=== PATIENT | female | born 1960 | race Caucasian/White ===

== ENCOUNTER → 2016-10-19 | Outpatient (CLI) | payer BC ==
[~2016-10-19] MED LIST: CALCTAB5 PO; CYAN500T13 PO; GLC500 PO; HYDR-3983 PO; INSDGIPEN SC; INSU1INJ23 SC; LBT/300 PO; LEVO200T PO; LEVO25TA PO; LEVO75TA PO; LOSA100T65 PO; NRN/300 PO; NVLGI/PEN SC; SERT1TAB68 PO; SIMV40TA2 PO
[2016-10-19 11:17] LABS: CALCIUM 9.5 mg/dl (8.5-10.1)
[2016-10-19 11:26] LABS: ESTIMATED AVERAGE GLUCOSE 203 mg/dl; HA1C FLAG Normal (Normal)
[2016-10-19 11:35] LABS: THYROID STIMULATING HORMONE 0.199 uIu/ml (0.300-4.500)
== END | disposition home or self-care (01) ==
LOC: C.LAB1850 10:18
PROVIDERS: ATTEND Nurse Practitioner Adult Health
DX: E03.9 Hypothyroidism, unspecified (principal); E55.9 Vitamin D deficiency, unspecified; E11.9 Type 2 diabetes mellitus without complications; M85.80 Other specified disorders of bone density and structure, unspecified site; Z86.39 Personal history of other endocrine, nutritional and metabolic disease

== ENCOUNTER → 2017-01-31 | Outpatient (CLI) | payer BC ==
[~2017-01-31] MED LIST changes: -LEVO75TA PO
[2017-01-31 17:52] LABS: URINE APPEARANCE TURBID (CLEAR); URINE BILIRUBIN NEG (NEG); URINE COLOR DK YELLOW; URINE NITRITE NEG (NEG); URINE PH 5.5 (4.5-7.5); URINE SPECIFIC GRAVITY 1.024 (1.000-1.030); UROBILINOGEN NEG (NEG); ZZUR CULT IF INDIC CLEAN CATCH NO
[2017-01-31 17:55] LABS: MANUAL MICROSCOPIC REQUIRED? NO; REVIEW REQ? NO
[2017-01-31 18:08] LABS: BLOOD UREA NITROGEN 23 mg/dl (7-18); BUN/CREATININE RATIO 20.9 (10-20); CALCIUM 9.2 mg/dl (8.5-10.1); CARBON DIOXIDE 28 mmol/L (21-32); CHLORIDE 104 mmol/L (98-107); GLUCOSE 102 mg/dl (70-99); MAGNESIUM 2.2 mg/dl (1.8-2.4); PHOSPHORUS 3.2 mg/dl (2.5-4.9); SODIUM 138 mmol/L (136-145)
[2017-01-31 18:09] LABS: URINE TOTAL PROTEIN 5.6 mg/dl (0-11.9)
[2017-02-01 06:21] LABS: ESTIMATED AVERAGE GLUCOSE 174 mg/dl; HA1C FLAG Normal (Normal)
== END | disposition home or self-care (01) ==
LOC: C.LABPVFM 11:20
PROVIDERS: ATTEND Internal Medicine Endocrinology, Diabetes & Metabolism
DX: E03.9 Hypothyroidism, unspecified (principal); E11.9 Type 2 diabetes mellitus without complications; Z79.4 Long term (current) use of insulin; E55.9 Vitamin D deficiency, unspecified; Z86.39 Personal history of other endocrine, nutritional and metabolic disease; I10 Essential (primary) hypertension

== ENCOUNTER → 2017-05-23 | Outpatient (CLI) | payer OTHER, BC ==
[~2017-05-23] MED LIST changes: -HYDR-3983 PO
[2017-05-23 12:38] LABS: ESTIMATED AVERAGE GLUCOSE 200 mg/dl; HA1C FLAG Normal (Normal)
[2017-05-23 13:28] LABS: ALT/SGPT 32 U/L (12-78); BLOOD UREA NITROGEN 24 mg/dl (7-18); BUN/CREATININE RATIO 25.1 (10-20); CARBON DIOXIDE 26 mmol/L (21-32); CHLORIDE 105 mmol/L (98-107); CREATININE 0.96 mg/dl (0.60-1.20); GLUCOSE 92 mg/dl (70-99); POTASSIUM 3.8 mmol/L (3.5-5.1); SODIUM 139 mmol/L (136-145); TRIGLYCERIDES 114 mg/dl (0-150); VERY LOW DENSITY LIPOPROT CALC 23 mg/dl
[2017-05-23 13:30] LABS: ALB/GLOB RATIO 0.9 (0.9-2); ALKALINE PHOSPHATASE 82 U/L (45-117); AST/SGOT 20 U/L (15-37); CHOLESTEROL 174 mg/dl (0-200); CHOLESTEROL/HDL RATIO 2.9; HDL CHOLESTEROL 59 mg/dl; LDL CHOLESTEROL CALCULATED 92 mg/dl
== END | disposition home or self-care (01) ==
LOC: C.LAB1850 09:41
PROVIDERS: ATTEND Internal Medicine Endocrinology, Diabetes & Metabolism
DX: E55.9 Vitamin D deficiency, unspecified (principal); Z86.39 Personal history of other endocrine, nutritional and metabolic disease; E11.9 Type 2 diabetes mellitus without complications

== ENCOUNTER 2017-08-10 18:25 | Emergency (ER) | payer OTHER, BC ==
[~2017-08-10] VITALS: Ht 167.6 cm; Wt 102.0 kg
[2017-08-10 18:37] VITALS: TEMP 36.9; Ht 167.6 cm; Wt 102.0 kg
--- NOTE | 2017-08-10 19:10 | EMERGENCY ROOM VISIT NOTE ---
ED Visit Note First contact with patient: 18:47 CHIEF COMPLAINT: Knee and calf pain HISTORY OF PRESENT ILLNESS: This is a 57-year-old female who presents to the emergency department with complaint of gradual onset of posterior knee and calf pain that started approximately 5 days ago. There has been no injury to the leg , however the patient does note that today she was taking a step and felt a sharp pain behind her knee that radiates down to her calf that is worse than previously. She denies any fever, chills, chest pain, shortness of breath, dizziness or syncope, abdominal pain, nausea or vomiting, urinary symptoms, rash. There has not been a long period of immobilization or long car or plane ride recently. There is no history of blood clots in the veins of the legs. She has a history of chronic back pain and is on Dilaudid pump chronically for this. REVIEW OF SYSTEMS: A complete 10 point review of systems was reviewed with the patient with pertinent positives and negatives as per history of present illness. All else were negative. PMH: The patient is healthy; there is no significant medical or surgical history. SOCIAL HISTORY: Patient lives at home. PHYSICAL EXAM: Vital Signs: Reviewed Nurse's notes. CONSTITUTIONAL: Pleasant and cooperative. No acute distress. Obese. Well appearing and well nourished. HEENT: Normocephalic, atraumatic. Pupils equal, round and reactive to light, EOMI. TMs normal. Pharynx normal. NECK: Supple, full active range of motion without discomfort. RESPIRATORY: Clear to auscultation bilaterally with no wheezing, crackles, rhonchi or stridor. Equal expansion bilaterally. CARDIOVASCULAR: Regular rate and rhythm with no murmurs, rubs or gallops. Normal peripheral perfusion. No edema. GASTROINTESTINAL: Soft, nontender, nondistended. No palpable masses or HSM. Bowel sounds present in all quadrants. MUSCULOSKELETAL: There is mild tenderness and swelling to the left posterior knee and calf, most significant tenderness directly behind the knee. There is no erythema, not hot to touch, no cords can be palpated. There is no lymphangitic streaking. She does have a positive Homans sign on the left. No cyanosis, edema, joint tenderness or effusion. Pulses equal bilaterally. Full range of motion of the knee joint, with increased pain upon flexion. No knee joint effusion noted. INTEGUMENTARY: No rash or other significant dermatologic conditions noted. NEUROLOGIC: Alert and oriented X 4 with normal affect. Cranial nerves II-XII grossly intact. No focal neurologic deficits noted. IMAGING: L KNEE 1 OR 2 VIEWS ROUTINE CLINICAL HISTORY: 57 years-old Female presenting with pain behind knee. TECHNIQUE: Frontal and lateral views of the left knee were obtained. COMPARISON: 06/11/2014. FINDINGS: No acute fracture or malalignment. Minimal osteophytosis may be present at the patellofemoral and lateral compartments. The joint space is symmetric. Focal stippled sclerotic lesion in the distal metaphysis of the femur, possibly bone island versus chondroid lesion. This has not changed since 2013. A similar more subtle smaller focus may be present in the proximal tibial metaphysis. Trace knee joint effusion. Prominent enthesophytes at the insertion of the quadriceps tendon and origin of the patellar tendon. IMPRESSION: 1. No acute osseous injury. 2. Mild degenerative changes in the lateral and patellofemoral compartments. 3. Trace knee joint effusion. ----- L VENOUS DOPP LOWER EXT UNILAT CLINICAL HISTORY: 57 years-old Female presenting with pain behind knee/calf, eval DVT. TECHNIQUE: Real-time grayscale and color and spectral Doppler ultrasound imaging of the veins of the left lower extremity was performed. Compression and augmentation were also utilized. COMPARISON: 03/17/2011. FINDINGS: Left: Common femoral vein: Patent. Greater saphenous vein: Patent. Deep femoral vein: Patent. Femoral vein: Patent. Popliteal vein: Patent. Calf veins: Patent. Other: Left popliteal cyst noted. IMPRESSION: No evidence of deep venous thrombosis. EMERGENCY DEPARTMENT COURSE: I examined the patient. Differential diagnosis includes knee sprain, contusion, gastrocnemius muscle tear, tendinitis, ligamentous injury, cellulitis, DVT, among others. The patient was given Percocet for pain. X-ray of the tibia/fibula is unremarkable, negative for acute bony abnormality. Ultrasound exam of the leg does not show any evidence of deep venous thrombosis, but is notable for a Courtney's cyst. This is suspected to be a cause for patient's pain. Patient was reassessed, reports improved pain after Percocet. She was updated on all results and plan for discharge home, and was encouraged to follow closely with her PCP. An Teddy wrap was applied to her left knee for comfort. She has a walker at home that she was encouraged to use to help reduce weightbearing on the left leg and help rest the leg for improved pain. She was also given strict return precautions should her symptoms worsen, she verbalized understanding. Patient was discharged home in stable condition and improved. Medication Reconciliation: I attest that I have personally reviewed the patient' s current medication list. Blood pressure screening: The patient was found to have an elevated blood pressure, this was felt to be situational. Current/Historical Medications Scheduled Calcium Carbonate-Vitamin D (Calcium), 1 TAB PO BID Cyanocobalamin (Vitamin B12 500MCG), 500 MCG PO QAM Gabapentin (Gabapentin), 600 MG PO TID Insulin Aspart (Novolog Flexpen), 20 UNITS SC TIDM Insulin Glargine (Lantus Solostar), 40 UNITS SC HS Insulin Isophane (Human) (Humulin N Kwikpen), 40 UNITS SC HS Labetalol HCl (Labetalol HCl), 600 MG PO BID Levothyroxine Sodium (Synthroid), 200 MCG PO DAILY Levothyroxine Sodium (Synthroid), 1 TAB PO DAILY Liothyronine Sodium (Liothyronine Sodium), 12.5 MCG PO DAILY Losartan Potassium (Cozaar), 100 MG PO QAM Metformin HCl (Metformin HCl), 1,000 MG PO BID Sertraline Hcl (Zoloft), 100 MG PO QAM Simvastatin (Zocor), 40 MG PO HS [Pain Pump], INTRAD CONTINOUS Allergies Coded Allergies: Amoxicillin (Verified Allergy, Intermediate, rash, 12/28/16) Clavulanic Acid (Verified Allergy, Intermediate, rash, 12/28/16) Prednisone (Verified Adverse Reaction, Unknown, pruritis, 12/28/16) pt currently taking. states was told to continue. Vital Signs Date Time Temp Pulse Resp B/P (MAP) Pulse Ox O2 Delivery O2 Flow Rate FiO2 08/10/17 21:11 97 16 129/81 97 08/10/17 20:02 89 16 139/75 94 Room Air 08/10/17 18:37 36.9 93 16 148/82 96 Room Air Medications Administered Medications (Trade) Dose Ordered Sig/Sara Route Start Time Stop Time Status Last Admin Dose Admin Oxycodone/ Acetaminophen (Percocet 5-325mg Tab) 1 tab NOW ONCE PO 08/10/17 19:30 08/10/17 19:31 DC 08/10/17 19:29 1 TAB Departure Information Impression Primary Impression: Synovial cyst of popliteal space [Courtney], left knee Dispostion Home / Self-Care Condition GOOD Referrals Amanda Spivey MD (PCP) Patient Instructions ED C[facility], [facility] Additional Instructions Stay off of the leg as much as possible and keep your knee elevated to rest and reduce swelling. Use your walker to limit weight put on your left leg. Apply heat to the back of your knee frequently over the next 2 days. Wear the TEDDY wrap to your left knee for comfort. Ibuprofen 600 mg every 6-8 hours and/or Tylenol 1000mg every 8 hours as needed for pain. Follow up with your primary care provider in the next week if your symptoms do not improve. Please return to the ER if you develop severe worsening pain, redness or increased swelling of the knee or leg, if the area becomes hot to tough, streaking up the leg, fevers/chills, new numbness/tingling or weakness of the leg, or any other concerns. Work Instructions Return To Work: 2 days
[2017-08-10] MEDS ORDERED: NRN600 PO (19:13)
[2017-08-10] MEDS ORDERED: CALC-51 PO (19:13)
[2017-08-10] MEDS ORDERED: PAIN PUMP INTRAD (19:13)
[2017-08-10] MEDS ORDERED: CYTM25 PO (19:13)
[2017-08-10] MEDS ORDERED: GLC500 PO (19:13)
[2017-08-10] MEDS ORDERED: LBT300 PO (19:13)
[2017-08-10] MEDS ORDERED: OXYCODONE/ACETAMINOPHEN 5-325 TAB PO ONE (19:30)
--- NOTE | 2017-08-10 19:46 | DIAGNOSTIC IMAGING REPORT ---
L KNEE 1 OR 2 VIEWS ROUTINE CLINICAL HISTORY: 57 years-old Female presenting with pain behind knee. TECHNIQUE: Frontal and lateral views of the left knee were obtained. COMPARISON: 06/11/2014. FINDINGS: No acute fracture or malalignment. Minimal osteophytosis may be present at the patellofemoral and lateral compartments. The joint space is symmetric. Focal stippled sclerotic lesion in the distal metaphysis of the femur, possibly bone island versus chondroid lesion. This has not changed since 2013. A similar more subtle smaller focus may be present in the proximal tibial metaphysis. Trace knee joint effusion. Prominent enthesophytes at the insertion of the quadriceps tendon and origin of the patellar tendon. IMPRESSION: 1. No acute osseous injury. 2. Mild degenerative changes in the lateral and patellofemoral compartments. 3. Trace knee joint effusion. Electronically signed by: Ramses Moreno M.D. 08/10/2017 7:45 PM Dictated Date/Time: 08/10/2017 7:42 PM
--- NOTE | 2017-08-10 20:03 | DIAGNOSTIC IMAGING REPORT ---
L VENOUS DOPP LOWER EXT UNILAT CLINICAL HISTORY: 57 years-old Female presenting with pain behind knee/calf, eval DVT. TECHNIQUE: Real-time grayscale and color and spectral Doppler ultrasound imaging of the veins of the left lower extremity was performed. Compression and augmentation were also utilized. COMPARISON: 03/17/2011. FINDINGS: Left: Common femoral vein: Patent. Greater saphenous vein: Patent. Deep femoral vein: Patent. Femoral vein: Patent. Popliteal vein: Patent. Calf veins: Patent. Other: Left popliteal cyst noted. IMPRESSION: No evidence of deep venous thrombosis. Electronically signed by: Ramses Moreno M.D. 08/10/2017 8:01 PM Dictated Date/Time: 08/10/2017 8:00 PM
[2017-08-10 21:11] VITALS: BP 129/81; PULSE 97; O2SAT 97
[2017-10-10] MEDS ORDERED: OXYC-57 PO (13:14)
== END 2017-08-10 21:00 | disposition home or self-care (01) ==
LOC: C.EDB 18:26 → C.EDD 21:00
DX: M71.22 Synovial cyst of popliteal space [Baker], left knee (principal); Z79.4 Long term (current) use of insulin

== ENCOUNTER → 2017-08-25 | Outpatient (CLI) | payer OTHER, BC ==
[~2017-08-25] MED LIST changes: +CALC-51 PO; -CALCTAB5 PO; +CYTM25 PO; -LBT/300 PO; +LBT300 PO; -NRN/300 PO; +NRN600 PO; +PAIN PUMP INTRAD
== END | disposition home or self-care (01) ==
LOC: C.CPL 14:12
PROVIDERS: ATTEND Orthopaedic Surgery
DX: S83.242D Other tear of medial meniscus, current injury, left knee, subsequent encounter (principal); X58.XXXD Exposure to other specified factors, subsequent encounter; Z01.810 Encounter for preprocedural cardiovascular examination

== ENCOUNTER 2019-06-27 13:37 | Inpatient (IN) ==
[2019-06-27 14:30] LABS: Basophils # (auto) 0.02 K/uL (0-0.2); Basophils % (auto) 0.2 %; Eosinophils # (auto) 0.27 K/uL (0-0.5); Eosinophils % (auto) 2.6 %; Immature Granulocytes # (auto) 0.01 K/uL (0.00-0.02); Immature Granulocytes % (auto) 0.1 %; Lymphocytes # (auto) 3.29 K/uL (1.2-3.4); Lymphocytes % (auto) 31.3 %; Mean Corpuscular Hemoglobin 26.5 pg (25-34); Mean Corpuscular Hgb Conc 32.4 g/dL (32-36); Mean Corpuscular Volume 81.9 fL (80-100); Mean Platelet Volume 9.4 fL (7.4-10.4); Monocytes # (auto) 0.78 K/uL (0.11-0.59); Monocytes % (auto) 7.4 %; Neutrophils # (auto) 6.13 K/uL (1.4-6.5); Neutrophils % (auto) 58.4 %; Platelet Count 204 K/uL (130-400); RDW Standard Deviation 42.1 fL (36.4-46.3); Red Blood Count 4.15 M/uL (4.2-5.4)
--- NOTE | 2019-06-27 14:37 | XRay Report ---
XR chest 1V portable CLINICAL HISTORY: 58 years-old Female presenting with post op low o2 sat eval for pna. TECHNIQUE: Portable upright AP view of the chest was obtained. COMPARISON: 05/11/2019. FINDINGS: Atherosclerosis of the aortic arch. Cardiac silhouette normal in size. Elevation of the right hemidia phragm new from prior. Mild pulmonary vascular prominence. Right basilar opacity associated with the diaphragmatic elevation. No other focal opacity. No large effusion or pneumothorax. Degenerative nick ges of the thoracic spine. Cholecystectomy clips noted. IMPRESSION: 1. Elevation of the right hemidiaphragm with right basilar atelectasis new from prior. This is of in determinate etiology and raises concern for phrenic nerve injury/right hemidiaphragm paralysis. Electronically signed by: Ramses Moreno M.D. 06/27/2019 2:35 PM
[2019-06-27 14:40] LABS: INR 1.1 (0.9-1.1); Partial Thromboplastin Ratio 1.2; Partial Thromboplastin Time 31.8 Seconds (21.0-31.0); Prothrombin Time 11.6 Seconds (9.0-12.0)
[2019-06-27 14:44] LABS: Alanine Aminotransferase 33 U/L (12-78); Albumin Level 3.5 gm/dl (3.4-5.0); Aspartate Aminotransferase 31 U/L (15-37); BUN Creatinine Ratio 26.7 (10-20); Blood Urea Nitrogen 21 mg/dl (7-18); Calcium 8.3 mg/dl (8.5-10.1); Carbon Dioxide 26 mmol/L (21-32); Chloride 106 mmol/L (98-107); Creatinine Clr Calc Pharmacy 88.3 ml/min; Est GFR (African American) 93.5; Est GFR (Non-African American) 80.7; Glucose 77 mg/dl (70-99); Sodium 140 mmol/L (136-145)
[2019-06-27 14:49] LABS: Alkaline Phosphatase 89 U/L (45-117); Bilirubin,Total 1.2 mg/dl (0.2-1); Globulin 3.6 gm/dl (2.5-4.0); Total Protein 7.1 gm/dl (6.4-8.2); Troponin I < 0.015 ng/ml (0-0.045)
[2019-06-27] MEDS ORDERED: ONDANSETRON INJ 2 MG/ML 2 ML VIAL IV STA (14:58)
[2019-06-27] MEDS ORDERED: fentaNYL citrate 100 MCG/2 ML VIAL IV STA (14:58)
[2019-06-27] MEDS ORDERED: MAGNESIUM HYDROXIDE SUSP 30 ML UDC PO PRN (15:48)
[2019-06-27] MEDS ORDERED: ALUMINUM/MAGNESIUM SUSP 30 ML UDC PO PRN (15:48)
[2019-06-27] MEDS ORDERED: ACETAMINOPHEN 325 MG TAB PO PRN (15:48)
--- NOTE | 2019-06-27 15:49 | History & Physical Report ---
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 (2) Type 2 diabetes mellitus, with long-term current use of insulin: Patient was on a large dose insulin subcu at home Consult pharmacy for diabetic control, hold metformin (3) Pure hypercholesterolemia: Continue Lipitor 40 mg p.o. daily Follow-up on lipids panel with primary care physician (4) Hypothyroidism: Check TSH in a.m. Continue Synthroid 250 mg p.o. daily (5) Depression: Appears to be stable, continue Effexor X are 150+37.5 mg p.o. daily (6) Essential hypertension: Blood pressure is currently within normal limits Restart hydrochlorothiazide from tomorrow morning History of Present Illness 58-year-old female with past medical history of diabetes mellitus insulin requiring, essential hypertension, dyslipidemia, hypothyroidism and obesity. Patient had a right shoulder and right middle arthroscopy today that went uneventful except for after she woke up from anesthesia she was hypoxic. She has no previous diagnosis of obstructive sleep apnea but her body habitus is suggestive of that. She was kept under observation and was given supplemental oxygen with no improvement. She was sent to the ED for further evaluation and she was found to have an elevated right couple of the diaphragm, anesthesia believes that she might have had right diaphragmatic paralysis from interscaling block. As per anesthesia condition can last few hours to 20 hours if that was the underlying cause of her hypoxia. X-ray also reported some right lower lobe density, possible atelectasis. Patient has no complaint, denies any chest pain, while in oxygen denies any shortness of breath. Denies any diarrhea, blood in stool, blood in the urine Primary Care Provider: Amanda Spivey MD Allergies Allergy/AdvReac Type Severity Reaction Status Date / Time amoxicillin Allergy Intermediate rash Verified 06/11/19 10:12 clavulanic acid Allergy Intermediate rash Verified 06/11/19 10:12 morphine Allergy Intermediate Itchy Unverified 06/27/19 14:06 prednisone AdvReac Unknown pruritis Verified 06/11/19 10:12 Augmentin TABS AdvReac Unknown Unknown Uncoded 06/27/19 14:06 predniSONE TABS AdvReac Unknown Unknown Uncoded 06/27/19 14:06 Home Medications Home Medications Medication Instructions Recorded Confirmed Type semaglutide 0.25 mg or 0.5 mg (2 0.25 mg SQ .COMPLEX #4.5 ml 01/23/19 06/27/19 Rx mg/1.5 mL) subcutaneous pen injector pen needle, diabetic 32 gauge x #500 ea 01/26/19 06/11/19 Rx 5/32" blood sugar diagnostic #10 ea 03/21/19 06/11/19 History cholecalciferol (vitamin D3) 2,000 4,000 units PO QAM tab 03/21/19 06/27/19 History unit tablet lancets 33 gauge #100 ea 03/21/19 06/11/19 History atorvastatin 40 mg tablet 40 mg PO HS 05/28/19 06/27/19 History hydrochlorothiazide 25 mg tablet 25 mg PO QAM 05/28/19 06/27/19 History insulin NPH isoph U-100 human 100 60 units SQ QPM ml 05/28/19 06/27/19 History unit/mL (3 mL) subcutaneous pen insulin aspart U-100 100 unit/mL 25 units SQ QAM ml 05/28/19 06/27/19 History (3 mL) subcutaneous pen insulin glargine 100 unit/mL (3 See Rx Instructions SQ QPM ml 05/28/19 06/27/19 History mL) subcutaneous pen labetalol 300 mg tablet 300 mg PO BID 05/28/19 06/27/19 History levothyroxine 200 mcg capsule 200 mcg PO QAM 05/28/19 06/27/19 History levothyroxine 50 mcg capsule 50 mcg PO QAM 05/28/19 06/27/19 History metformin 1,000 mg tablet 1,000 mg PO BID 05/28/19 06/27/19 History gabapentin 600 mg tablet 600 mg PO TID #90 tab 06/14/19 06/27/19 Rx venlafaxine 37.5 mg PO QAM 06/27/19 06/27/19 History venlafaxine [Effexor XR] 150 mg PO QAM 06/27/19 06/27/19 History Past Med/Surg History Medical History Arachnoiditis (Resolved) Cervicalgia (Chronic) Chronic back pain Degenerative disc disease Depression (Chronic) Depressive disorder (Chronic) Diabetes mellitus, type 2 Dyslipidemia (Chronic) Esophageal reflux (Chronic) Fide's thyroiditis (Chronic) Hearing deficit Hearing difficulty (Chronic) History of anesthesia reaction pt states she has woken up during colonoscopy before; states she needs more anesthesia HTN, goal below 140/90 (Chronic) Hypercholesterolemia (Chronic) Hypertension (Chronic) Hypothyroidism Insomnia (Chronic) Lumbar back pain with radiculopathy affecting left lower extremity (Chronic) Obesity, Class II, BMI 35-39.9 (Chronic) Osteopenia (Chronic) Post laminectomy syndrome (Chronic) Pure hypercholesterolemia (Chronic) Spinal stenosis Tongue pain (Resolved) Type 2 diabetes mellitus, with long-term current use of insulin (Chronic) Vitamin D deficiency (Chronic) Surgical History History of ankle fusion x3 right ankle History of arthroscopy of left knee History of back surgery (Chronic) L2-S1 fusion by Dr. Keith 2014 History of carpal tunnel release left History of cholecystectomy History of colonoscopy History of open reduction and internal fixation (ORIF) procedure Right ankle--hardware in place History of thyroidectomy Hx of removal of cyst left wrist Status post LASIK surgery of both eyes Family History Father Family history of diabetes mellitus Myocardial infarction Brother Family history of diabetes mellitus Myocardial infarction Sister Family history of diabetes mellitus 2 sisters Mother Family hx of colon cancer Colorectal cancer Social History Preferred Language: [place] Communication Ability: Effective Visual Impairment: No Limitations Hearing Ability: Use of Hearing Aid 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 Beliefs That Will Affect Care: None marital status: Current Living Situation: Spouse and Family Current Living Situation Comment: Lives with and daughter current occupational status: retired Feels Safe at Home: Yes Smoking Status: Former smoker Second Hand Exposure: Yes (parents smoked) ; Hx Alcohol Use: No Hx Substance Use: No Dental Care, Regularly: Yes Physical Activity Frequency: Does not Exercise Review of Systems Review of Systems: Review of system Constitutional: No fever / no chills / no sweats / no weakness / no fatigue Eyes: no blurring of vision / no eye pain / no discharge / no redness ENT: no hearing loss / no epistaxis /no swallowing problems Respiratory: no cough / no wheezing / no SOB / no hemoptysis Cardiovascular: no Chest pain / no lower extremity edema / no palpitation Abdomen: no pain / no nausea / no vomiting / no constipation Musculoskeletal: no joint pain / no muscle pain / no joint swelling Genitourinary: no dysuria / no incontinence / no urinary retention Neurologic: no focal weakness / no numbness/tingling / no ataxia Psychiatric: no depression symptoms / no anxiety / no insomnia Endocrine: no excessive thirst / no excessive urination Hematologic: no abnormal bleeding / no bruising / no LN swelling Skin: No rash / no pallor Physical Exam Physical Exam: Physical examination General morbidly obese appears to be in mild distress HEENT: Atraumatic , normocephalic /no jaundice /no pallor /anicteric /no dry mucous membrane /normal external ear inspection Neck: Supple /no swelling /central trach Heart: S1/S2 normal/regular rate and rhythm/no gallop /no rub /no murmur Lungs: Clear to auscultation bilaterally/normal chest with expansion/no rhonchi/no rales/no wheezing/no use of accessory muscles of respiration Abdomen: Soft/nontender/no guarding/no rebound/no organomegaly/no pulsatile mass Musculoskeletal: No swelling/no edema/no tenderness/normal range of motion Neuro exam: Awake alert oriented 3/cranial nerves II through XII appear to be intact/sensation intact/moves all extremities/no abnormal movements Psychiatric evaluation: No depressed mood/normal affect Skin: No rash on exposed skin area/no erythema Extremity: Normal pulse/no pitting edema/no clubbing or cyanosis Results & Data Vital Signs (Past 12 Hours) Vital Signs Temp Pulse Pulse Resp BP BP Pulse Ox 06/27/19 15:19 89 20 113/79 93 06/27/19 15:15 91 H 18 113/79 93 06/27/19 15:05 93 H 18 94 06/27/19 14:31 88 20 95 06/27/19 14:30 90 12 142/77 H 95 06/27/19 14:11 86 20 96 11/14/19 14:01 85 15 96 06/27/19 14:00 86 20 140/65 95 06/27/19 13:49 36.8 C 90 22 126/68 87 L 06/27/19 13:45 87 19 95 06/27/19 13:44 86 17 130/72 95 PG Care Time/CCT Total # of Minutes Spent Total Time Spent with Patient: 35 minutes total time spent is greater than 50% in coordination of care (as documented) at patient's floor/unit and/or counseling patient/family discussion of care with nursing staff
[2019-06-27] MEDS ORDERED: PHARMACY GLYCEMIC MGMT CONSULT PRN (16:52)
[2019-06-27] MEDS ORDERED: GLUCAGON FOR INJ 1 MG VIAL IM PRN (17:00)
[2019-06-27] MEDS ORDERED: DEXTROSE 50% 50 ML SYRINGE IV PRN (17:00)
[2019-06-27] MEDS ORDERED: CARBOHYDRATES FOR HYPOGLYCEMIA PO PRN (17:00)
[2019-06-27] MEDS ORDERED: GLUCOSE 10 TABS/TUBE PO PRN (17:00)
[2019-06-27] MEDS ORDERED: GLUCOSE 40% GEL 15 GM TUBE PO PRN (17:00)
--- NOTE | 2019-06-27 17:35 | Emergency Department Note ---
Entered by Savage Mcnamara acting as a scribe for Juan Sanchez MD History of Present Illness General Chief complaint: Shortness of Breath/Dyspnea Stated complaint: sob Time Seen by Provider: 06/27/19 14:02 Source: patient History of Present Illness Onset (ago): hour(s) 3 Location: chest (lungs) Pain Consistency: + constant Maximum Pain Intensity: 8 Quality: + other (SOB when taken off oxygen) Relieved By: + other (oxygen) Exacerbated By: + other (taken off oxygen) Associated symptoms: + denies other symptoms (fever, cold symptoms, vomiting); no chest pain The patient is a 58 y/o female who presents to the ED w/ CC of constant shortness of breath when taken off oxygen beginning 3 hours ago. The patient states she was at [facility] and had a scope of her right shoulder and knee. She reports she was in the recovery room for three hours and cannot maintain her O2Sat when taken off oxygen. The patient notes she did not have a chest x-ray, and she does not have chest pain. She states she is not short of breath while on oxygen. The patient reports she has a history of vomiting after having anesthesia, but she notes she has not had trouble with her breathing before. She states she has a history of DM and HTN. The patient denies trouble breathing before sedation, cold symptoms, taking blood thinners, vomiting, and fevers. She also denies a history of COPD, asthma, emphysema, DVT, and PE. Home Medications Home Medications Medication Instructions Recorded Confirmed Type semaglutide 0.25 mg or 0.5 mg (2 0.25 mg SQ .COMPLEX #4.5 ml 01/23/19 06/27/19 R x mg/1.5 mL) subcutaneous pen injector pen needle, diabetic 32 gauge x #500 ea 01/26/19 06/11/19 Rx 5/32" blood sugar diagnostic #10 ea 03/21/19 06/11/19 History cholecalciferol (vitamin D3) 2,000 4,000 units PO QAM tab 03/21/19 06/27/19 History unit tablet lancets 33 gauge #100 ea 03/21/19 06/11/19 History atorvastatin 40 mg tablet 40 mg PO HS 05/28/19 06/27/19 History hydrochlorothiazide 25 mg tablet 25 mg PO QAM 05/28/19 06/27/19 History insulin NPH isoph U-100 human 100 60 units SQ QPM ml 05/28/19 06/27/19 History unit/mL (3 mL) subcutaneous pen insulin aspart U-100 100 unit/mL 25 units SQ QAM ml 05/28/19 06/27/19 History (3 mL) subcutaneous pen insulin glargine 100 unit/mL (3 See Rx Instructions SQ QPM ml 05/28/19 06/27/19 History mL) subcutaneous pen labetalol 300 mg tablet 300 mg PO BID 05/28/19 06/27/19 History levothyroxine 200 mcg capsule 200 mcg PO QAM 05/28/19 06/27/19 History levothyroxine 50 mcg capsule 50 mcg PO QAM 05/28/19 06/27/19 History metformin 1,000 mg tablet 1,000 mg PO BID 05/28/19 06/27/19 History gabapentin 600 mg tablet 600 mg PO TID #90 tab 06/14/19 06/27/19 Rx venlafaxine 37.5 mg PO QAM 06/27/19 06/27/19 History venlafaxine [Effexor XR] 150 mg PO QAM 06/27/19 06/27/19 History Allergies Allergy/AdvReac Type Severity Reaction Status Date / Time amoxicillin Allergy Intermediate rash Verified 06/11/19 10:12 clavulanic acid Allergy Intermediate rash Verified 06/11/19 10:12 morphine Allergy Intermediate Itchy Unverified 06/27/19 14:06 prednisone AdvReac Unknown pruritis Verified 06/11/19 10:12 Augmentin TABS AdvReac Unknown Unknown Uncoded 06/27/19 14:06 predniSONE TABS AdvReac Unknown Unknown Uncoded 06/27/19 14:06 Past Med/Surg History Medical History Arachnoiditis (Resolved) Cervicalgia (Chronic) Chronic back pain Degenerative disc disease Depression (Chronic) Depressive disorder (Chronic) Diabetes mellitus, type 2 Dyslipidemia (Chronic) Esophageal reflux (Chronic) Fide's thyroiditis (Chronic) Hearing deficit Hearing difficulty (Chronic) History of anesthesia reaction pt states she has woken up during colonoscopy before; states she needs more anesthesia HTN, goal below 140/90 (Chronic) Hypercholesterolemia (Chronic) Hypertension (Chronic) Hypothyroidism Insomnia (Chronic) Lumbar back pain with radiculopathy affecting left lower extremity (Chronic) Obesity, Class II, BMI 35-39.9 (Chronic) Osteopenia (Chronic) Post laminectomy syndrome (Chronic) Pure hypercholesterolemia (Chronic) Spinal stenosis Tongue pain (Resolved) Type 2 diabetes mellitus, with long-term current use of insulin (Chronic) Vitamin D deficiency (Chronic) Surgical History History of ankle fusion x3 right ankle History of arthroscopy of left knee History of back surgery (Chronic) L2-S1 fusion by Dr. Keith 2015 History of carpal tunnel release left History of cholecystectomy History of colonoscopy History of open reduction and internal fixation (ORIF) procedure Right ankle--hardware in place History of thyroidectomy Hx of removal of cyst left wrist Status post LASIK surgery of both eyes Family History Father Family history of diabetes mellitus Myocardial infarction Brother Family history of diabetes mellitus Myocardial infarction Sister Family history of diabetes mellitus 2 sisters Mother Family hx of colon cancer Colorectal cancer Social History Preferred Language: Upper Sorbian Communication Ability: Effective Visual Impairment: No Limitations Hearing Ability: Use of Hearing Aid Coating Operator Required: No Beliefs That Will Affect Care: None marital status: Current Living Situation: Spouse and Family Current Living Situation Comment: Lives with and daughter current occupational status: retired Feels Safe at Home: Yes Smoking Status: Former smoker Second Hand Exposure: Yes (parents smoked) ; Hx Alcohol Use: No Hx Substance Use: No Dental Care, Regularly: Yes Physical Activity Frequency: Does not Exercise Review of Systems See HPI for pertinent positives & negatives. and A total of 10 systems reviewed and were otherwise negative Physical Exam Vital Signs Vital Signs - 24 hr 06/27/19 13:44 06/27/19 13:45 06/27/19 13:49 Temperature 36.8 C Temperature Source Oral Pulse Rate 86 87 90 Pulse Rate [Right Finger] Pulse Rate from SpO2 Sensor 86 87 Respiratory Rate 17 19 22 Respiratory Effort / Characteristics Non-Labored Spontaneous Respiratory Depth Normal Respiratory Pattern Regular Blood Pressure 130/72 126/68 Blood Pressure [Left Arm] Blood Pressure Mean 85 87 Blood Pressure Mean [Left Arm] Pulse Oximetry 95 95 87 L Oxygen Delivery Method Nasal Cannula Nasal Cannula Room Air Nasal Cannula Oxygen Flow Rate 3 3 3 Sepsis Recent Fever Within 48 Hours No Sepsis New/Unexplained Change in Mental Status No Sepsis Action Taken by Nursing No Action Required Oxygen Flow Rate - Titration 3 Pulse Oximetry Post Tiitration 96 06/27/19 14:00 06/27/19 14:01 06/27/19 14:11 Temperature Temperature Source Pulse Rate 86 85 86 Pulse Rate [Right Finger] Pulse Rate from SpO2 Sensor 86 85 Respiratory Rate 20 15 20 Respiratory Effort / Characteristics Respiratory Depth Respiratory Pattern Blood Pressure 140/65 Blood Pressure [Left Arm] Blood Pressure Mean 75 Blood Pressure Mean [Left Arm] Pulse Oximetry 95 96 96 Oxygen Delivery Method Nasal Cannula Oxygen Flow Rate 3 Sepsis Recent Fever Within 48 Hours Sepsis New/Unexplained Change in Mental Status Sepsis Action Taken by Nursing Oxygen Flow Rate - Titration Pulse Oximetry Post Tiitration 06/27/19 14:30 06/27/19 14:31 06/27/19 15:05 Temperature Temperature Source Pulse Rate 90 88 93 H Pulse Rate [Right Finger] Pulse Rate from SpO2 Sensor 90 88 93 H Respiratory Rate 12 20 18 Respiratory Effort / Characteristics Respiratory Depth Respiratory Pattern Blood Pressure 142/77 H Blood Pressure [Left Arm] Blood Pressure Mean 94 Blood Pressure Mean [Left Arm] Pulse Oximetry 95 95 94 Oxygen Delivery Method Oxygen Flow Rate Sepsis Recent Fever Within 48 Hours Sepsis New/Unexplained Change in Mental Status Sepsis Action Taken by Nursing Oxygen Flow Rate - Titration Pulse Oximetry Post Tiitration 06/27/19 15:15 06/27/19 15:16 06/27/19 15:19 Temperature Temperature Source Pulse Rate 91 H 91 H Pulse Rate [Right Finger] 89 Pulse Rate from SpO2 Sensor 91 H 91 H Respiratory Rate 18 21 20 Respiratory Effort / Characteristics Non-Labored Spontaneous Respiratory Depth Normal Respiratory Pattern Regular Blood Pressure 113/79 Blood Pressure [Left Arm] 113/79 Blood Pressure Mean 91 Blood Pressure Mean [Left Arm] 90 Pulse Oximetry 93 93 93 Oxygen Delivery Method Nasal Cannula Oxygen Flow Rate 3 Sepsis Recent Fever Within 48 Hours Sepsis New/Unexplained Change in Mental Status Sepsis Action Taken by Nursing Oxygen Flow Rate - Titration Pulse Oximetry Post Tiitration 06/27/19 15:30 06/27/19 15:31 Temperature Temperature Source Pulse Rate 89 88 Pulse Rate [Right Finger] Pulse Rate from SpO2 Sensor 90 88 Respiratory Rate 16 23 Respiratory Effort / Characteristics Respiratory Depth Respiratory Pattern Blood Pressure 120/54 L Blood Pressure [Left Arm] Blood Pressure Mean 92 Blood Pressure Mean [Left Arm] Pulse Oximetry 93 94 Oxygen Delivery Method Oxygen Flow Rate Sepsis Recent Fever Within 48 Hours Sepsis New/Unexplained Change in Mental Status Sepsis Action Taken by Nursing Oxygen Flow Rate - Titration Pulse Oximetry Post Tiitration Constitutional: Vital signs reviewed. Eyes: Pupils are equal round reactive to light. Conjunctiva are noninjected. ENT: Pharynx is clear without erythema or exudate. Mucous membranes are dry. Neck supple without meningeal signs. Respiratory: Clear to auscultation bilaterally. Breath sounds are equal bilaterally. Cardiovascular: Regular rate and rhythm. No rubs or gallops. GI: Soft, nondistended and nontender. Bowel sounds are present. Musculoskeletal: Right knee and shoulder wrapped in a dress. No calf tenderness bilaterally. Integumentary: No cyanosis. Neurological: The patient is somnolent but answers questions easily. No focal deficits. Psychiatric: Normal affect. Course Course 1405: Past medical records reviewed. The patient was evaluated in room B12B. A complete history and physical exam was performed. 1451: The patient states she had general anesthesia and a nerve block to the right shoulder. 1456: I discussed the patient's case with Dr. Xiao, [facility]. He reports the patient had an interscalene block and stated the phrenic nerve paralysis should resolve within a few hours or overnight. He notes she does not need any intervention other than oxygen and observation. 1457: Upon reevaluation, the patient is questing pain medication for her knee pain. I discussed laboratory and radiographic results with her. She verbalized agreement of the treatment plan. The patient will be evaluated for further management and care. 1519: I reviewed the patient's case with Dr. Sandhu, [facility] Hospitalist. He will evaluate the patient for further management. Administered Medications Discontinued Medications Fentanyl Citrate (Fentanyl Citrate) 50 mcg IV NOW STA Stop: 06/27/19 14:59 Last Admin: 06/27/19 15:31 Dose: 50 mcg Documented by: [id number] Ondansetron HCl (Zofran) 4 mg IV NOW STA Stop: 06/27/19 14:59 Last Admin: 06/27/19 15:31 Dose: 4 mg Documented by: [id number] Medical Decision Making Differential Diagnosis Differential diagnosis includes: aspiration, pneumonia, pleural effusion, anemia, over sedation. Medical Records Attestation: I reviewed the patient's medical records. I did perform a limited focused review of portions of the patient's old chart on the electronic medical record. The patient has had no recent pertinent visits to this hospital. Home Medications Current Medication List: was personally reviewed by me Laboratory Data Attestation: I reviewed the patient's lab results. Result diagrams: 06/27/19 14:20 06/27/19 14:20 Lab Results 06/27/19 06/27/19 06/27/19 Range/Units 14:20 14:20 14:20 WBC 10.50 (4.8-10.8) K/uL RBC 4.15 L (4.2-5.4) M/uL Hgb 11.0 L (12.0-16.0) g/dL Hct 34.0 L (37-47) % MCV 81.9 (80-100) fL MCH 26.5 (25-34) pg MCHC 32.4 (32-36) g/dL RDW Std Deviation 42.1 (36.4-46.3) fL RDW Coeff of Rajan 14.0 (11.5-14.5) % Plt Count 204 (130-400) K/uL MPV 9.4 (7.4-10.4) fL Immature Gran % (Auto) 0.1 % Neut % (Auto) 58.4 % Lymph % (Auto) 31.3 % Zavala % (Auto) 7.4 % Eos % (Auto) 2.6 % Baso % (Auto) 0.2 % Immature Gran # (Auto) 0.01 (0.00-0.02) K/uL Neut # (Auto) 6.13 (1.4-6.5) K/uL Lymph # (Auto) 3.29 (1.2-3.4) K/uL Zavala # (Auto) 0.78 H (0.11-0.59) K/uL Eos # (Auto) 0.27 (0-0.5) K/uL Baso # (Auto) 0.02 (0-0.2) K/uL PT 11.6 (9.0-12.0) Seconds INR 1.1 (0.9-1.1) APTT 31.8 H (21.0-31.0) Seconds PTT Ratio 1.2 Sodium 140 (136-145) mmol/L Potassium 4.0 (3.5-5.1) mmol/L Chloride 106 (98-107) mmol/L Carbon Dioxide 26 (21-32) mmol/L Anion Gap 8.0 (3-11) BUN 21 H (7-18) mg/dl Creatinine 0.80 (0.6-1.2) mg/dl Est Cr Clr Drug Dosing 88.3 ml/min Est GFR ( Amer) 93.5 Est GFR (Non-Af Amer) 80.7 BUN/Creatinine Ratio 26.7 H (10-20) Glucose 77 (70-99) mg/dl Calcium 8.3 L (8.5-10.1) mg/dl Total Bilirubin 1.2 H (0.2-1) mg/dl AST 31 (15-37) U/L ALT 33 (12-78) U/L Alkaline Phosphatase 89 (45-117) U/L Troponin I < 0.015 (0-0.045) ng/ml Total Protein 7.1 (6.4-8.2) gm/dl Albumin 3.5 (3.4-5.0) gm/dl Globulin 3.6 (2.5-4.0) gm/dl Albumin/Globulin Ratio 1.0 (0.9-2) Imaging Data Radiologist's Impression: Radiology results as stated below per my review and the radiologist's interpretation: XR chest 1V portable CLINICAL HISTORY: 58 years-old Female presenting with post op low o2 sat eval for pna. TECHNIQUE: Portable upright AP view of the chest was obtained. COMPARISON: 05/11/2019. FINDINGS: Atherosclerosis of the aortic arch. Cardiac silhouette normal in size. Elevation of the right hemidiaphragm new from prior. Mild pulmonary vascular prominence. Right basilar opacity associated with the diaphragmatic elevation. No other focal opacity. No large effusion or pneumothorax. Degenerative changes of the thoracic spine. Cholecystectomy clips noted. IMPRESSION: 1. Elevation of the right hemidiaphragm with right basilar atelectasis new from prior. This is of indeterminate etiology and raises concern for phrenic nerve injury/right hemidiaphragm paralysis. Electronically signed by: Ramses Moreno M.D. 06/27/2019 2:35 PM ECG Data Indication: + other (hypoxia) Rate (beats per minute): 87 Rhythm: + normal sinus ECG ST segments: no ST elevation ECG Findings: + Other (LVH); no PACs Blood Pressure Blood Pressure Findings: Elevated blood pressure Blood Pressure Disposition: further management by hospitalist SUNITA García I did evaluate the patient as noted above. The patient was under general anesthesia for arthroscopy of the right shoulder and knee. She is presenting because she was in recovery for 3 hours and they could not maintain her O2 saturations. She has no complaints but states she gets short of breath when she is taken off of the oxygen. Her O2 saturation here is 87% on room air. She was placed on supplemental oxygen via nasal cannula. IV access was established. The patient was placed on a continuous monitor and storage bin tender. I did order and personally review the patient's 12-lead EKG as described above. There is no evidence of acute ischemia. I did order and personally reviewed the images of the patient's chest x-ray as described above. She has no infiltrate but she has significant elevation of the right hemidiaphragm concerning for phrenic nerve dysfunction. I did call the anesthesiologist at [facility] who stated that he did do an interscalene block which likely affected her phrenic nerve. He stated that this would likely be temporary and can last a few hours to a day. No acute intervention was necessary I did order and review the patient's blood work as noted in the electronic medical record. She has mild anemia. I did discuss the test results with the patient as well as what the anesthesiologist discussed. She will be hospitalized for further care and evaluation. She was given IV fentanyl and Zofran for her postoperative knee pain. I did discuss the case with the hospitalist and geriatric case manager. Impression & Plan Hypoxia, Injury of phrenic nerve, Anemia, Post-operative pain Discharge Plan Visit Data *Final* Discharge Date/Time: 06/27/19 16:20 Chief Complaint: Shortness of Breath/Dyspnea Stated Complaint: sob ED Provider: Juan Sanchez Discharge Problem: Hypoxia, Injury of phrenic nerve, Anemia, Post-operative pain Patient Disposition: Admitted As Inpatient Discharge Instructions Interventions: ED Discharge Assessment Last Done: 06/27/19 16:20 Discharge Problem: Anemia Qualifiers: Anemia type: unspecified type Qualified Code(s): D64.9 - Anemia, unspecified The scribe's documentation has been prepared under my direction and personally reviewed by me in its entirety. I confirm that the note above accurately reflects all work, treatment, procedures, and medical decision making performed by me.
[2019-06-27] MEDS: INSULIN ASPART 100 UNITS/ML 3 ML PEN SQ SCH ×2 (18:29→20:50)
[2019-06-27] MEDS ORDERED: NURSING DECISION MEDICATION ONE (20:21)
[2019-06-27] MEDS ORDERED: COUGH DROP (SUGAR FREE) LOZ 24 LOZ/1 BOX BUCCAL PRN (20:26)
[2019-06-27] MEDS ORDERED: TRAMADOL HCL 50 MG TABLET PO PRN (20:40)
[2019-06-27] MEDS: GABAPENTIN 600 MG TAB PO SCH (20:48)
[2019-06-27] MEDS: LABETALOL HCL 300 MG TAB PO SCH (20:48)
[2019-06-27] MEDS ORDERED: ATORVASTATIN 40 MG TAB PO SCH (21:00)
[2019-06-27] MEDS ORDERED: INSULIN GLARGINE SOLOSTAR 100 UNITS/ML 3 ML PEN SQ SCH (21:00)
[2019-06-27] MEDS ORDERED: OXYCODONE HCL IR 5 MG TAB (IMMEDIATE RELEASE) PO PRN (21:58)
[2019-06-28] MEDS: INSULIN ASPART 100 UNITS/ML 3 ML PEN SQ SCH ×5 (00:57→17:07)
[2019-06-28] MEDS ORDERED: KETOROLAC TROMETHAMINE 15 MG/ML VIAL IV PRN (01:51)
[2019-06-28] MEDS ORDERED: ONDANSETRON INJ 2 MG/ML 2 ML VIAL IV PRN (01:53)
[2019-06-28] MEDS: MoRPHine SULFATE 2 MG/ML CARP IV PRN ×2 (02:10→07:13)
[2019-06-28] MEDS ORDERED: LEVOTHYROXINE SODIUM 50 MCG TABLET PO SCH (06:30)
[2019-06-28] MEDS ORDERED: LEVOTHYROXINE SODIUM 200 MCG TABLET PO SCH (06:30)
[2019-06-28 06:36] LABS: Basophils # (auto) 0.03 K/uL (0-0.2); Basophils % (auto) 0.3 %; Eosinophils # (auto) 0.25 K/uL (0-0.5); Eosinophils % (auto) 2.6 %; Hematocrit (blood only) 33.5 % (37-47); Hemoglobin 10.7 g/dL (12.0-16.0); Immature Granulocytes # (auto) 0.02 K/uL (0.00-0.02); Immature Granulocytes % (auto) 0.2 %; Lymphocytes # (auto) 3.66 K/uL (1.2-3.4); Lymphocytes % (auto) 38.2 %; Mean Corpuscular Hemoglobin 26.4 pg (25-34); Mean Corpuscular Hgb Conc 31.9 g/dL (32-36); Mean Corpuscular Volume 82.5 fL (80-100); Mean Platelet Volume 9.4 fL (7.4-10.4); Monocytes # (auto) 0.81 K/uL (0.11-0.59); Monocytes % (auto) 8.5 %; Neutrophils # (auto) 4.81 K/uL (1.4-6.5); Neutrophils % (auto) 50.2 %; Platelet Count 198 K/uL (130-400); RDW Standard Deviation 42.4 fL (36.4-46.3); Red Blood Count 4.06 M/uL (4.2-5.4); White Blood Count 9.58 K/uL (4.8-10.8)
--- NOTE | 2019-06-28 07:03 | XRay Report ---
XR chest 1V portable HISTORY: 58 years-old Female SOB acute shortness of breath COMPARISON: Chest radiograph 06/27/2019, thoracic spine radiographs 05/04/2018, chest radiograph 2018. TECHNIQUE: Portable AP view of the chest FINDINGS: Cardiac silhouette is mildly enlarged, unchanged. Calcified plaque of the thoracic aortic arch. Uncha nged right hemidiaphragmatic elevation with right lung base opacities. No pneumothorax, large pleural effusion or overt pulmonary edema. The left lung is clear. Degenerative changes of the shoulders and spine. Cholecystectomy. IMPRESSION: 1. Cardiomegaly without acute process. 2. Unchanged right hemidiaphragmatic elevation with right lung base opacities suggestive of atelectas is. The above report was generated using voice recognition software. It may contain grammatical, syntax o r spelling errors. Electronically signed by: Royal Villela M.D. 06/28/2019 7:02 AM
[2019-06-28 07:08] LABS: Albumin Level 3.3 gm/dl (3.4-5.0); BUN Creatinine Ratio 20.3 (10-20); Calcium 8.2 mg/dl (8.5-10.1); Creatinine Clr Calc Pharmacy 71.6 ml/min; Est GFR (African American) 71.4; Est GFR (Non-African American) 61.6; Magnesium 1.8 mg/dl (1.8-2.4); Potassium 3.8 mmol/L (3.5-5.1)
[2019-06-28 07:18] LABS: Albumin Globulin Ratio 0.9 (0.9-2); Bilirubin,Total 1.6 mg/dl (0.2-1); Globulin 3.7 gm/dl (2.5-4.0); Thyroid Stimulating Hormone 0.878 uIu/ml (0.300-4.500)
[2019-06-28] MEDS: LABETALOL HCL 300 MG TAB PO SCH (08:18)
[2019-06-28] MEDS: GABAPENTIN 600 MG TAB PO SCH ×2 (08:19→14:31)
[2019-06-28] MEDS ORDERED: hydroCHLOROthiazide 25 MG TAB PO SCH (09:00)
[2019-06-28] MEDS ORDERED: VENLAFAXINE HCL XR 37.5 MG CAPXR PO SCH (09:00)
[2019-06-28] MEDS ORDERED: VENLAFAXINE HCL XR 150 MG CAPXR PO SCH (09:00)
[2019-06-28] MEDS ORDERED: OXYCODONE/ACETAMINOPHEN 5mg/325mg TAB PO PRN (12:23)
[2019-06-28] MEDS ORDERED: OXYCODONE/ACETAMINOPHEN 5mg/325mg TAB ONE (12:31)
--- NOTE | 2019-06-28 13:54 | Pharmacy Report ---
Glycemic Control Consultation - Date of Service June 28, 2019 - Scope Scope: Glycemic Pharmacist consulted by Dr España on 06/27/19 for glycemic control and to write orders per [facility] inpatient glycemic control protocol - Objective Weight: 98.3 kg Accuchecks BSG (last 24hrs): 06/27/19 06/27/19 06/27/19 14:20 17:15 20:21 Glucose 77 POC Glucose 112 H 98 06/28/19 06/28/19 06/28/19 00:54 06:19 06:24 Glucose 134 H POC Glucose 128 H 155 H 06/28/19 06/28/19 07:07 11:17 Glucose POC Glucose 138 H 127 H Laboratory Data (last 24hrs): 06/27/19 06/28/19 14:20 06:24 Potassium 4.0 3.8 Carbon Dioxide 26 31 Anion Gap 8.0 3.0 Creatinine 0.80 1.00 Est Cr Clr Drug Dosing 88.3 71.6 - Recent Pertinent Medications Outpatient Anti-diabetic Regimen: * Novolog 25u TIDM + SSI, Lantus 60u PM, NPH 60u PM * A1c = 11.8 % 01/21/19 - Assessment & Plan Assessment & Plan: ASSESSMENT: * Ms. Lee is a 58yo type 2 diabetic female. PMHx: consistent with HTN, HDL, obesity, among others. D/w pt and confirmed her outpt regimen. Most recent A1C from January was 11.8%. I have ordered one for tomorrow. No steroids, tolerating a diet. PLAN FOR INPATIENT GLYCEMIC CONTROL: * Basal insulin * Lantus scale SQ @HS, please see MAR for further details * Bolus insulin * NovoLog per scale ACHS or Q6hrs while NPO * Goal Range: Low 110 mg/dL - High 140 mg/dL * Correction Factor: 25 mg/dL/unit * Nutritional / Prandial insulin per carb ratio of 1 unit per 7 grams CHO consumed * Please note that the plan above was derived based on current level of insulin resistance and hospital stress. These recommendations are appropriate for inpatient admission only. Plan of care upon discharge will need to be reassessed to avoid potential outpatient hypo/hyperglycemia. Thank you.
--- NOTE | 2019-06-28 14:09 | XRay Report ---
XR chest 2V PA/lateral CLINICAL HISTORY: 58 years-old Female presenting with diaphragm hemiparesis. TECHNIQUE: PA and lateral views of the chest were obtained. COMPARISON: 06/28/2019. FINDINGS: Atherosclerosis of the aortic arch. Cardiac silhouette mildly enlarged. Bandlike opacities in the mid lungs and right lung base. Elevation of the right hemidiaphragm as on prior exam. No pleural effusio n or pneumothorax. Degenerative changes of the thoracic spine. Upper abdomen normal. IMPRESSION: 1. Bilateral atelectasis or scarring in the mid and lower lungs greater on the right. 2. 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 Electronically signed by: Ramses Moreno M.D. 06/28/2019 2:07 PM
--- NOTE | 2019-06-28 15:02 | Discharge Summary ---
Date of Service June 28, 2019 Admission HPI Per Admitting Provider 58-year-old female with past medical history of diabetes mellitus insulin requiring, essential hypertension, dyslipidemia, hypothyroidism and obesity. Patient had a right shoulder and right middle arthroscopy today that went uneventful except for after she woke up from anesthesia she was hypoxic. She has no previous diagnosis of obstructive sleep apnea but her body habitus is suggestive of that. She was kept under observation and was given supplemental oxygen with no improvement. She was sent to the ED for further evaluation and she was found to have an elevated right couple of the diaphragm, anesthesia b elieves that she might have had right diaphragmatic paralysis from interscaling block. As per anesthesia condition can last few hours to 20 hours if that was the underlying cause of her hypoxia. X-ray also reported some right lower lobe density, possible atelectasis. Patient has no complaint, denies any chest pain, while in oxygen denies any shortness of breath. Denies any diarrhea, blood in stool, blood in the urine Primary Care Provider: Amanda Spivey MD Principal Diagnosis Hypoxic respiratory failure Discharge Exam Constitutional WD/WN, vitals as above Respiratory normal respiratory effort, lungs clear to auscultation Cardiovascular RRR, no murmur, no edema Gastrointestinal (Abdomen) Inspection/Auscultation: abdomen normal to inspection and normal bowel sounds; abdomen not distended Percussion/Palpation: abdomen soft; abdomen nontender and no guarding Skin no rashes, warm and dry Neurologic moves all extremities and awake Psychiatric A+Ox3, euthymic affect Discharge Data Allergies Allergy/AdvReac Type Severity Reaction Status Date / Time amoxicillin Allergy Intermediate rash Verified 06/11/19 10:12 clavulanic acid Allergy Intermediate rash Verified 06/11/19 10:12 morphine Allergy Intermediate Itchy Unverified 06/27/19 14:06 prednisone AdvReac Unknown pruritis Verified 06/11/19 10:12 Augmentin TABS AdvReac Unknown Unknown Uncoded 06/27/19 14:06 predniSONE TABS AdvReac Unknown Unknown Uncoded 06/27/19 14:06 Consultations 06/27/19 14:58 ED Decision to Admit Stat Hospital Course (1) Acute respiratory failure with hypoxia: Likely secondary to right hemidiaphragm paralysis following nerve block for outpatient shoulder arthroscopy. Repeat CXR showed persistent hemidiaphragm paralysis on the right. Patient has been saturating mid 90s. Tolerated PT/OT evals fairly well. No history of chronic respiratory issues per chart. Patient cautioned that should she become sob again she should return to the ED. (2) Type 2 diabetes mellitus, with long-term current use of insulin: Patient was on a large dose insulin subcu at home Consult pharmacy for diabetic control, hold metformin - can resume on discharge to home Last A1c 01/21 was 11.8 (3) Pure hypercholesterolemia: Continue Lipitor 40 mg p.o. daily Follow-up on lipids panel with primary care physician (4) Hypothyroidism: TSH low normal Continue Synthroid 250 mg p.o. daily (5) Depression: Appears to be stable, continue Effexor X are 150+37.5 mg p.o. daily (6) Essential hypertension: Blood pressure stable Continue home hctz (7) Elevated bilirubin: May be reactive - she has been elevated over the summer as well. She does not have a gallbladder. No abd symptoms or n/v. Repeat level on Monday. Total Time Total Time Spent Total Time Spent (In Minutes): greater than 30 minutes Discharge Plan Discharge Items Patient Disposition: Home - Self-Care Reason For Visit: RESPIRATORY FAILURE WITH HYPOXIA Discharge Diagnosis: Respiratory failure with hypoxia Activity: Resume your previous activity Non-emergency contact: Primary Care Provider Call non-emergency contact if: you have any medication questions and your symptoms worsen Follow-up/Referrals: Amanda Spivey MD [Primary Care Provider] - Diet: Carb Consistent or DM2 Ambulatory Orders: Comprehensive Metabolic Panel (Routine) Timeframe: [id number] Location: Determined by Patient Ordered By: Gerda Carpio Attending Provider Instructions: You were admitted due to low oxygen saturations after your outpatient procedure and hemiparesis of your right diaphragm causing reduced lung volume. This will likely resolve as the pain block you received for your procedure wears off which can take as long as 72 hours in some cases. You should return to the emergency department if you become short of breath again. Your lab work showed an elevation of your bilirubin. Please have repeat blood work done on Monday to check that it is trending back down. You should call your doctor if you develop abdominal pain, nausea or vomiting. You can resume your metformin at home unless you have been instructed otherwise by your surgeon Please see your primary care provider in about a week and discuss with them any follow up imaging of your lungs. Pending Studies at Discharge: No Stand-Alone Forms: My [facility], Smoking Cessation Medications and DC Order Prescriptions: Continued (DME) pen needle, diabetic [BD Ultra-Fine Yola Pen Needle] 32 gauge x 5/32" needle See Dose Instructions .ROUTE .MEDSUPPLY Qty: 500 RF: 3 gabapentin [Neurontin] 600 mg tablet 600 mg PO TID Qty: 90 RF: 5 (DME) lancets [OneTouch Delica Lancets] 33 gauge misc See Dose Instructions .ROUTE .MEDSUPPLY Qty: 100 RF: 0 (DME) OneTouch Verio strip See Dose Instructions .ROUTE .MEDSUPPLY Qty: 10 RF: 0 cholecalciferol (vitamin D3) 2,000 unit tablet 4,000 units PO QAM RF: 0 Ozempic 0.25 mg or 0.5 mg(2 mg/1.5 mL) pen injector 0.25 mg SQ .COMPLEX Qty: 4.5 RF: 1 levothyroxine 50 mcg capsule 50 mcg PO QAM RF: 0 levothyroxine 200 mcg capsule 200 mcg PO QAM RF: 0 labetalol 300 mg tablet 300 mg PO BID RF: 0 metformin 1,000 mg tablet 1,000 mg PO BID RF: 0 hydrochlorothiazide 25 mg tablet 25 mg PO QAM RF: 0 atorvastatin 40 mg tablet 40 mg PO HS RF: 0 Basaglar KwikPen U-100 Insulin 100 unit/mL (3 mL) insulin pen See Rx Instructions SQ QPM RF: 0 Humulin N NPH Insulin KwikPen 100 unit/mL (3 mL) insulin pen 60 units SQ QPM RF: 0 Novolog Flexpen U-100 Insulin 100 unit/mL (3 mL) insulin pen 25 units SQ TIDM RF: 0 venlafaxine 37.5 mg capsule,extended release 24hr 37.5 mg PO QAM RF: 0 venlafaxine [Effexor XR] 150 mg capsule,extended release 24hr 150 mg PO QAM RF: 0 Discharge Orders: Discharge Order (Routine); Ordered 06/28/19 Ordered By: Gerda Black Admission Data Admit Date/Time: 06/27/19 15:51 Attending Provider: Stan Mckay Admit Provider: Jasper Cates Primary Care Provider: Amanda Spivey Other Providers: Stan Mckay Supervising Physician Co-Signing Physician Notes I supervised Gerda Black NP on this patient's care. I examined the patient today independently of her. I discussed the plan of care with her with the plan being as written in her note except for any following changes/exceptions: None. Comfortable today. No major concerns. Would like to go home. Has been up and walking around without hypoxemia or shortness of breath.
--- NOTE | 2019-06-28 15:07 | Communication Note ---
Date of Service: June 28, 2019 Pt had right RTC repair and right knee arthroscopy yesterday at [facility] yesterday. Developed SOB post op and went to the ER. Likely nerve block for shoulder was possible reason for SOB. Pt currently sitting up in bed. Awake, alert. Mild shoulder pain. No knee pain currently. Good ROM of the right elbow,wrist and fingers with good strength. Mild decreased sensation in fingers. Good Cap refill. Dressings C/D/I for the right shoulder and right knee. Right knee with mild decrease in ROM but otherwise wnl. Pt underwent 2 step test today for O2 therapy and per patient, does not need O2. Discussed with Dr Mckay. Pt is planned for discharge today. Follow up with PT on Monday. Follow instruction sheets given from [facility].
[2019-06-28] MEDS ORDERED: INSULIN GLARGINE SOLOSTAR 100 UNITS/ML 3 ML PEN SQ SCH (21:00)
[2019-06-28] MEDS ORDERED: HEPARIN SOD 5,000 UNIT/0.5 ML VIAL SQ SCH (21:00)
--- NOTE | 2019-07-03 11:58 | Coding Query ---
CODING QUERY To promote full compliance with coding requirements relating to patient care, provider participation is requested in all cases of aviation tactical readiness officer uncertainty. Please assist us with the question(s) below: Coding Question(s): There is documentation SOB after procedure and, "Likely nerve block for shoulder was possible reason for SOB" with the ER documenting, "Injury of phrenic nerve, Anemia" and there is documentation of, "Acute respiratory failure with hypoxia: Likely secondary to right hemidiaphragm paralysis" on the H&P and Discharge Summary documents, "Acute respiratory failure with hypoxia: Likely secondary to right hemidiaphragm paralysis following nerve block for outpatient shoulder arthroscopy". Please clarify below, in your clinical opinion. 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 during procedure - during the nerve block procedure ( x ) Hemidiaphragm Paralysis due to Adverse Effect of the local anesthetics from the Nerve Block ( ) Other: Please specify Physician's Response(s): Thank you Jennifer Bolton Principal Diagnosis: "that condition established after study, to be chiefly responsible for occasioning the admission of the patient to the hospital for care." Co-Existing Principal Diagnosis: "when two or more diagnoses equally meet the criteria for principal diagnosis as determined by the circumstances of admission, diagnostic work up, and/or therapy provided, and the Alphabetic Index, Tabular List, or another coding guideline does not provide sequencing direction, any one of the diagnoses may be sequenced first." "When the physician has documented what appears to be a current diagnosis in the body of the record, but has not included the diagnosis in the final diagnostic statement, the physician should be asked whether the diagnosis should be added." (Source Coding [facility] 2 QTR90. p3-4) PRAKASH
== END 2019-06-28 17:55 | disposition home or self-care (01) | DRG 205 ==
LOC: ED 13:37 → SUATTDRO 15:51 → 2S 15:51